=== PATIENT | female | born 1960 ===

== ENCOUNTER → 2016-05-31 | Day surgery (SDC) | payer MEDICAID ==
--- NOTE | 2016-05-28 19:08 | Pre-op HX & Phy Repo 2 SIG ---
DATE OF ADMISSION: 05/31/2016 DATE OF SURGERY: 05/31/2016 PREOPERATIVE DIAGNOSIS: Vitreous hemorrhage retraction, left eye. BRIEF NOTE: This is the first [place] admission for the patient, who is a very nice 55-year-old lady with a severe proliferative retinopathy and extensive hemorrhaging in the left eye. Her past ocular history is remarkable for previous laser treatment to retinal tears in both eyes. She has had diabetes for some time. Fluorescein angiography done in April 2016 showed very severe proliferative diabetic retinopathy in both eyes, worse on the left with widespread areas of preretinal fibrosis along the optic nerve and temporally as well as diffuse macular edema. She is admitted for vitrectomy with membrane peel on that side. PAST MEDICAL HISTORY: Again, is remarkable for diabetes, heart disease, and hypertension. MEDICATIONS: She is on atenolol and metformin. PHYSICAL EXAMINATION: Best vision at the time of the visit was 20/80 in the right eye and 20/60 in the left with pressures of 10. The anterior segment showed moderate cataracts on either side, presently nuclear sclerotic. Fundus examination of the right eye showed a 0.3 cup. There was optic disc neovascularization as well with widespread diabetic macular edema. Some degree of peripheral laser was seen. There was a [id number] vitreous hemorrhage. No significant posterior distortion of the macula was noted. On the left, there was widespread preretinal fibrosis with a vertical band going through the optic nerve and a curvilinear band extending outside of the macula exerting traction on the macula itself. Extensive old laser was seen as well as significant background diabetic retinopathy. ASSESSMENT: Severe proliferative diabetic retinopathy, both eyes with severe traction and vitreous hemorrhaging, left eye worse than right. PLAN: The plan is to perform a pars plana vitrectomy with membrane dissection, endolaser, and Avastin injection on the left eye. The risks and benefits of the surgery were gone over with the patient with the potential for infection, cataract worsening, retinal detachment, recurrent hemorrhage, and remote possibility of loss of the eye. The risk of anesthesia was discussed. The patient understands and consents to the surgery, which will be performed on Tuesday. Manuel Daugherty M.D. DR: BJ JOB#: [id number] CC:
[2016-05-31] VITALS (8 sets, daily range): BP systolic 119–148; BP diastolic 70–78
[~2016-05-31] VITALS: Ht 147.3 cm; Wt 66.7 kg
[~2016-05-31] MED LIST: ACTOS30 MG ORAL; ASPIRIN81 MG ORAL; ATORVASTATIN CA40 MG ORAL; Avastin 10mg Inj IVITRE ONE; BSS 15ml BTL ONE; BSS 500ml btl ONE; Bupivacaine 0.75% 30ml vial INJ ONE; Cyclopentolate 1% Opth Sol ONE; Dexamethasone 4mg/ml vial ONE; EPINEPHrine 1mg/1ml Amp ONE; Flurbiprofen 0.03% Opth Sol 2.5ml ONE; GABAPENTIN300 MG ORAL; GLIPIZIDE XL10 MG ORAL; Gatifloxacin Opth Solution 0.5% ONE; Kenalog-10 5ml Inj ONE; Kenalog-40 1ml Vial ONE; LANTUS SOL100 UNIT/1 SUBQ; LISINOPRIL10 MG ORAL; LR 1000ml 1,000 ML IV SCH; LR 1000ml 1,000 ML IVLG SCH; LR 1000ml ONE; Lidocaine 2% MPF 5ml Vial INJ ONE; METFORMIN HCL1000 M1 ORAL; Maxitrol Opth Oint 3.5gm ONE; Midazolam 2mg/2ml Inj ONE; NS Irrig 1000ml ONE; Phenylephrine 2.5% Op Soln ONE; Povidone-Iodine 5% opth solution ONE; Pred Forte 1% Opth Susp 1ml LEFT EYE ONE; Propofol 10mg/ml 20ml IV ONE; Sodium Hyaluronate 10 mg/ml 0.85ml ONE; Sterile Water Irrig 1000ml IRRIG ONE; Tetracaine 0.5% Opth Soln ONE; Triamcinolone 40mg/ml PF Vial ONE; [UNRECOGNIZED DRUG - REMARK]; fentaNYL 100 mcg/2 mL IV PRN
[2016-05-31] MEDS: Gatifloxacin Opth Solution 0.5% LEFT EYE SCH ×3 (05:37→06:11)
[2016-05-31] MEDS: Phenylephrine 2.5% Op Soln LEFT EYE SCH ×3 (05:37→06:11)
[2016-05-31] MEDS: Cyclopentolate 1% Opth Sol LEFT EYE SCH ×3 (05:37→06:11)
[2016-05-31] MEDS: Flurbiprofen 0.03% Opth Sol 2.5ml LEFT EYE SCH ×3 (05:37→06:11)
--- NOTE | 2016-05-31 06:01 | Pre-Procedure Note/Attestation ---
Pre-Procedure Note/Attestation Complete Prior to Procedure Planned Procedure: left Procedure Narrative: PPV, membrane peel, endolaser, Kenalog injection, Avastin injection L eye Indications for Procedure Pre-Operative Diagnosis: Vitreous hemorrhage with traction L eye Attestation I attest that I discussed the nature of the procedure; its benefits; risks and complications; and alternatives (and the risks and benefits of such alternatives ), prior to the procedure, with the patient (or the patient's legal industrial sales representative). I attest that, if there was a reasonable possibility of needing a blood transfusion, the patient (or the patient's legal industrial sales representative) was given the [facility] standardized written summary, pursuant to the Antonio Terri Blood Safety Act ([place] Health and Safety Code # 1645, as amended). I attest that I re-evaluated the patient just prior to the surgery and that there has been no change in the patient's H&P, except as documented below: ROLLY WITT May 31, 2016 06:01
--- NOTE | 2016-05-31 07:35 | Anethesia Preoperative Eval ---
Anesthesia Pre-op PMH/ROS General Date of Evaluation: May 31, 2016 Time of Evaluation: 06:55 Anesthesiologist: Mary ASA Score: ASA 3 Mallampati Score Class I : Soft palate, uvula, fauces, pillars visible Class II: Soft palate, uvula, fauces visible Class III: Soft palate, base of uvula visible Class IV: Only hard plate visible Mallampati Classification: Class II Surgeon: Dat Diagnosis: Vitreous hemorrhage left eye Surgical Procedure: Vitrectomy, membrane peeling Family History: no anesthesia problems Allergies: Coded Allergies: No Known Allergies (Unverified , 05/14/16) Medications: see eMAR Past Medical History Cardiovascular: Reports: CAD, HTN Pulmonary: Denies: COPD, ELSA, asthma, other Gastrointestinal/Genitourinary: Denies: CRI, ESRD, GERD, other Neurologic/Psychiatric: Denies: CVA, TIA, dementia, depression/anxiety, other Endocrine: Reports: DM HEENT: Denies: [place] (L), [place] (R), cataract (L), cataract (R), glaucoma, other Hematology/Immune: Denies: DVT, anemia, bleeding disorder, other Musculoskeletal/Integumentary: Denies: DDD, DJD, OA, RA, edema, other PMH Narrative: CAD (s/p PTCA), HTN, DM, hypercholesterolemia PSxH Narrative: PTCA, C/S Anesthesia Pre-op Phys. Exam Physician Exam Last Vital Signs Date Time Temp Pulse Resp B/P Pulse Ox O2 Delivery O2 Flow Rate FiO2 05/31/16 05:45 97.2 80 18 145/77 100 Room Air Constitutional: NAD Neurologic: CN 2-12 intact Cardiovascular: RRR, no M/R/G Respiratory: CTA Gastrointestinal: S/NT/ND Airway Exam Mallampati Score: Class II MO: full ROM: full Teeth: missing Anesthesia Pre-op A/P Labs WNL Studies Pre-op Studies: EKG - SR, possible septal infarct with possible lateral ischemia Risk Assessment & Plan Assessment: Vitreous hemorrhage Plan: MAC Status Change Before Surgery: No Pre-Antibiotics Drug: None RASHEL CASTELLANO M.D. May 31, 2016 07:35
--- NOTE | 2016-05-31 07:35 | Immediate Post-Op Evaluation ---
Immediate Post-Op Evalulation Immediate Post-Op Evalulation Procedure: Vitrectomy, membrane peeling left eye Date of Evaluation: May 31, 2016 Time of Evaluation: 08:20 IV Fluids: 250 Blood Pressure Systolic: 135 Blood Pressure Diastolic: 73 Pulse Rate: 80 Respiratory Rate: 20 O2 Sat by Pulse Oximetry: 100 Temperature (Fahrenheit): 97.0 Pain Score (1-10): 0 Nausea: No Vomiting: No Complications No complication Patient Status: awake, patent, none Hydration Status: adequate Drug: None RASHEL CASTELLANO M.D. May 31, 2016 07:35
--- NOTE | 2016-05-31 08:15 | 48 Hour Post Anesthesia Eval ---
Post Anesthesia Evaluation Procedure: Vitrectomy, membrane peeling left eye Date of Evaluation: May 31, 2016 Time of Evaluation: 09:50 Blood Pressure Systolic: 133 0: 75 Pulse Rate: 79 Respiratory Rate: 18 O2 Sat by Pulse Oximetry: 98 Nausea: No Vomiting: No Pain Intensity: 0 Hydration Status: adequate Cardiopulmonary Status: Stable Mental Status/LOC: patient returned to baseline Follow-up Care/Observations: As per surgery Post-Anesthesia Complications: No anesthetic complication Follow-up care needed: N/A RASHEL CASTELLANO M.D. May 31, 2016 08:15
--- NOTE | 2016-05-31 08:16 | Brief Operative Note ---
Immediate Post Operative Note Operative Note Chief Complaint: Dark clouds in vision L eye Pre-op Diagnosis: Vitreous hemorrhage with traction L eye Procedure: PPV, membrane peel, endolaser 829 spots, Kenalog injection, Avastin injection 1.25mg, Air-Fluid exchange L eye Post-op Diagnosis: same as pre-op Surgeon: ami Anesthesiologist: Mary Anesthesia: MAC Specimen: none Complications: none Condition: stable Estimated Blood Loss: none Drains: none Implant(s) used?: No ROLLY WITT May 31, 2016 08:16
--- NOTE | 2016-06-01 19:29 | Operative Note - Dictated ---
DATE OF OPERATION: 05/31/2016 PREOPERATIVE DIAGNOSIS: Vitreous hemorrhage with posterior diabetic traction of left eye. POSTOPERATIVE DIAGNOSIS: Vitreous hemorrhage with posterior diabetic traction of left eye. PROCEDURES: 1. Pars plana vitrectomy. 2. Extensive membrane peel. 3. Endolaser. 4. Kenalog injection. 5. Avastin injection. 6. Air-fluid exchange, left eye. SURGEON: Manuel Daugherty M.D. ROLLING ATTENDANT: None. ANESTHESIA: Local sedation. ANESTHESIOLOGIST: Dr. Hernandez. JUSTIFICATION FOR SURGERY: This 55-year-old lady with a long history of diabetes, developed recurrent hemorrhages and posterior distortion. BRIEF NOTE: The patient was brought to the operative room, placed on operating room table in supine position. After a time-out was performed and agreed upon by the staff and initial monitoring secured by Dr. Hernandez, a retrobulbar and van Lint blocks were given in the standard way. When the blocks taken effect, she was prepped and draped in normal manner. A lid speculum was inserted into the left eye. Using a 23-gauge trocar system cannulas were then placed in all except infranasal quadrant. Infusion secured inferotemporally. Vitrectomy was begun posterior to the lens taking care to avoid contact. A central core vitrectomy was performed. Kenalog was used to aid in visualization of vitreous membranes. Peripheral vitrectomy was continued leaving a small vitreous skirt. Several bands of traction were noted with the principal ones on the optic nerve along the inferotemporal arcade and along both superior arcades. These were sectioned with the vitreous cutter leaving small islands of traction. A posterior viewing lens was then inserted and using the membrane pick to identify the tissues spaces, the vitrector was used to gently dissect and cut away the preretinal fibrosis flush with the retina. Minimal if any bleeding was encountered and no retinal breaks were made. With the retina now free of traction, the Endolaser was brought to the eye and a power of 0.3 arenas duration of 0.2 seconds a total of 829 lesions were applied. The far periphery where the retina was lightly treated and also surrounding areas of traction. Scleral depression was done and no peripheral pathology of significance was noted. An air-fluid exchange was then performed through roughly a 90% fill followed by injection of Avastin 1.25 mg. All cannulas were removed and the wounds noted to be self-sealing. Subconjunctival Decadron and gentamicin were then injected inferiorly and Maxitrol and atropine ointments were instilled. The eye was patched and shielded and the patient was taken to recovery in excellent condition. There were no complications. Manuel Daugherty M.D. DR: BRYAN JOB#: [id number] CC: Manuel Daugherty M.D. [facility] CHILDREN'S HOSPITALMoises
== END | disposition home or self-care (01) ==
LOC: SUR 05:08
DX: H43.12 Vitreous hemorrhage, left eye (principal); H43.822 Vitreomacular adhesion, left eye; E11.3512 Type 2 diabetes mellitus with proliferative diabetic retinopathy with macular edema, left eye; Z79.84 Long term (current) use of oral hypoglycemic drugs; E11.42 Type 2 diabetes mellitus with diabetic polyneuropathy; E78.5 Hyperlipidemia, unspecified; I10 Essential (primary) hypertension; I25.10 Atherosclerotic heart disease of native coronary artery without angina pectoris; Z86.73 Personal history of transient ischemic attack (TIA), and cerebral infarction without residual deficits; Z79.82 Long term (current) use of aspirin; Z79.899 Other long term (current) drug therapy
CPT/HCPCS: 67042; 82962; J0171; J1100; J2250; J2704; J3301; J3470; J3490; J7120; J9035; Z7512; 94003; 94150; J3300

== ENCOUNTER 2016-08-30 05:54 | Day surgery (SDC) | payer MEDICAID ==
--- NOTE | 2016-08-27 17:00 | Pre-op HX & Phy Repo 2 SIG ---
DATE OF ADMISSION: 08/30/2016 DATE OF SURGERY: 08/30/2016. PREOPERATIVE DIAGNOSIS: Vitreous hemorrhage, recurrent, left eye. BRIEF NOTE: This is the second [place] admission for this patient who is very nice 55-year-old lady with a long history of proliferative diabetic retinopathy. She underwent surgery in May 2016 for a vitreous hemorrhage with traction. She did well, but developed postoperative oozing, which has failed to clear. She is admitted for a vitrectomy and washout with additional endolaser and Avastin on that side. PAST MEDICAL HISTORY: Remarkable for diabetes, heart disease, and hypertension. She has been diabetic for at least 20 years. MEDICATIONS: Her current medications include topical prednisolone acetate as well as atenolol and metformin orally. ALLERGIES: She has no known allergies. SOCIAL HISTORY: She is an everyday smoker, but does not drink. PHYSICAL EXAMINATION: HEENT: Best vision time of the visit was 20/60 in the right eye and counting fingers in the left with pressures of 14 and 12. The anterior segments were reasonably quiet. There were cortical cataracts in either eye, slightly worse on the left. Fundus exam of the right eye showed active neovascularization of the disc, which appeared to show some aggression. There was moderate peripheral laser. The left fundus was seen on due to the dense vitreous hemorrhage. The ultrasound that had been done previously showed the retina to be all attached. General physical examination was done by the patient's primary physician. ASSESSMENT: Dense vitreous hemorrhage, left eye. PLAN: The plan is to perform a pars plana vitrectomy with washout, additional endolaser and Avastin injection on the left. The risks and benefits of surgery gone over with the patient with potential for infection, hemorrhage, glaucoma, and remote possibility of loss of the eye. The risk of cataract progression was also discussed. The patient understands consents to surgery, to be performed on Tuesday morning. Manuel Daugherty M.D. DR: BRYAN JOB#: [id number] CC:
[~2016-08-30] VITALS: Ht 147.3 cm; Wt 68.0 kg
[2016-08-30] VITALS (8 sets, daily range): BP systolic 140–167; BP diastolic 73–85
[~2016-08-30 05:54] MED LIST changes: -Avastin 10mg Inj IVITRE ONE; -BSS 15ml BTL ONE; -BSS 500ml btl ONE; -Bupivacaine 0.75% 30ml vial INJ ONE; -Cyclopentolate 1% Opth Sol ONE; -Dexamethasone 4mg/ml vial ONE; -EPINEPHrine 1mg/1ml Amp ONE; -Flurbiprofen 0.03% Opth Sol 2.5ml ONE; -Gatifloxacin Opth Solution 0.5% ONE; -Kenalog-10 5ml Inj ONE; -Kenalog-40 1ml Vial ONE; -LR 1000ml 1,000 ML IV SCH; -LR 1000ml 1,000 ML IVLG SCH; -LR 1000ml ONE; -Lidocaine 2% MPF 5ml Vial INJ ONE; -Maxitrol Opth Oint 3.5gm ONE; -Midazolam 2mg/2ml Inj ONE; -NS Irrig 1000ml ONE; -Phenylephrine 2.5% Op Soln ONE; -Povidone-Iodine 5% opth solution ONE; -Pred Forte 1% Opth Susp 1ml LEFT EYE ONE; -Propofol 10mg/ml 20ml IV ONE; -Sodium Hyaluronate 10 mg/ml 0.85ml ONE; -Sterile Water Irrig 1000ml IRRIG ONE; -Tetracaine 0.5% Opth Soln ONE; -Triamcinolone 40mg/ml PF Vial ONE; -fentaNYL 100 mcg/2 mL IV PRN
[2016-08-30] MEDS ORDERED: Phenylephrine 2.5% Op Soln ONE (05:58)
[2016-08-30] MEDS ORDERED: Cyclopentolate 1% Opth Sol ONE (05:58)
[2016-08-30] MEDS ORDERED: Flurbiprofen 0.03% Opth Sol 2.5ml ONE (05:58)
[2016-08-30] MEDS ORDERED: Gatifloxacin Opth Solution 0.5% ONE (05:58)
[2016-08-30] MEDS ORDERED: Avastin 10mg Inj IVITRE ONE (06:00)
[2016-08-30] MEDS: Flurbiprofen 0.03% Opth Sol 2.5ml LEFT EYE SCH ×3 (06:27→06:47)
[2016-08-30] MEDS: Cyclopentolate 1% Opth Sol LEFT EYE SCH ×3 (06:27→06:47)
[2016-08-30] MEDS: Phenylephrine 2.5% Op Soln LEFT EYE SCH ×3 (06:27→06:47)
[2016-08-30] MEDS: Gatifloxacin Opth Solution 0.5% LEFT EYE SCH ×3 (06:28→06:48)
[2016-08-30] MEDS ORDERED: LR 1000ml 1,000 ML IV SCH (06:55)
[2016-08-30] MEDS ORDERED: Pred Forte 1% Opth Susp 1ml LEFT EYE ONE (07:30)
--- NOTE | 2016-08-30 07:34 | Pre-Procedure Note/Attestation ---
Pre-Procedure Note/Attestation Complete Prior to Procedure Planned Procedure: left Procedure Narrative: PPV, Endolaser, Avastin injection L eye Indications for Procedure Pre-Operative Diagnosis: Recurrent vitreous hemorrhage L eye Attestation I attest that I discussed the nature of the procedure; its benefits; risks and complications; and alternatives (and the risks and benefits of such alternatives ), prior to the procedure, with the patient (or the patient's legal public service representative). I attest that, if there was a reasonable possibility of needing a blood transfusion, the patient (or the patient's legal public service representative) was given the [facility] standardized written summary, pursuant to the Antonio Terri Blood Safety Act ([place] Health and Safety Code # 1645, as amended). I attest that I re-evaluated the patient just prior to the surgery and that there has been no change in the patient's H&P, except as documented below: ROLLY WITT Aug 30, 2016 07:34
[2016-08-30] MEDS ORDERED: Norco 5mg/325mg tab ORAL PRN ×2 (07:45→09:15)
--- NOTE | 2016-08-30 09:04 | Anethesia Preoperative Eval ---
Anesthesia Pre-op PMH/ROS General Date of Evaluation: Aug 30, 2016 Time of Evaluation: 08:59 Anesthesiologist: Igor ASA Score: ASA 3 Mallampati Score Class I : Soft palate, uvula, fauces, pillars visible Class II: Soft palate, uvula, fauces visible Class III: Soft palate, base of uvula visible Class IV: Only hard plate visible Mallampati Classification: Class II Surgeon: Dat Diagnosis: Vitreous Hemorrhage OS Surgical Procedure: Vitrectomy OS Anesthesia History: none Family History: no anesthesia problems Allergies: Coded Allergies: No Known Allergies (Unverified , 05/14/16) Medications: see eMAR Past Medical History Cardiovascular: Reports: CAD, HTN Neurologic/Psychiatric: Reports: CVA Endocrine: Reports: DM - FBS 196 PSxH Narrative: C/S Anesthesia Pre-op Phys. Exam Physician Exam Last Vital Signs Date Time Temp Pulse Resp B/P Pulse Ox O2 Delivery O2 Flow Rate FiO2 08/30/16 06:35 98.2 82 20 145/84 99 Room Air Constitutional: NAD Neurologic: CN 2-12 intact Cardiovascular: RRR Respiratory: CTA Gastrointestinal: S/NT/ND Airway Exam Mallampati Score: Class II MO: full ROM: limited Teeth: missing Anesthesia Pre-op A/P Risk Assessment & Plan Assessment: ASA 3 Plan: GA Status Change Before Surgery: Allan Diop MD Aug 30, 2016 09:04
[2016-08-30] MEDS ORDERED: LR 1000ml 1,000 ML IVLG SCH (09:07)
--- NOTE | 2016-08-30 09:10 | 48 Hour Post Anesthesia Eval ---
Post Anesthesia Evaluation Procedure: Vitrectomy OS Date of Evaluation: Aug 30, 2016 Time of Evaluation: 12:11 Blood Pressure Systolic: 161 0: 84 Pulse Rate: 83 Respiratory Rate: 18 Temperature (Fahrenheit): 97.4 O2 Sat by Pulse Oximetry: 100 Airway: patent Nausea: No Vomiting: No Pain Intensity: 1 Hydration Status: adequate Cardiopulmonary Status: Stable Mental Status/LOC: patient returned to baseline Follow-up Care/Observations: 0 Post-Anesthesia Complications: 0 Follow-up care needed: ready to discharge Allan Costa MD Aug 30, 2016 09:10
--- NOTE | 2016-08-30 09:10 | Immediate Post-Op Evaluation ---
Immediate Post-Op Evalulation Immediate Post-Op Evalulation Procedure: Vitrectomy OS Date of Evaluation: Aug 30, 2016 Time of Evaluation: 12:11 IV Fluids: 500 LR Blood Products: 0 Estimated Blood Loss: 1 Urinary Output: 0 Blood Pressure Systolic: 158 Blood Pressure Diastolic: 82 Pulse Rate: 82 Respiratory Rate: 16 O2 Sat by Pulse Oximetry: 100 Temperature (Fahrenheit): 97 Pain Score (1-10): 1 Nausea: No Vomiting: No Complications 0 Patient Status: awake, reacts, patent, none Hydration Status: adequate Allan Costa MD Aug 30, 2016 09:10
[2016-08-30] MEDS ORDERED: Ketorolac 60mg Inj IV PRN (09:15)
[2016-08-30] MEDS ORDERED: Hydromorphone 0.5mg/0.5ml inj IVP PRN (09:15)
[2016-08-30] MEDS ORDERED: Metoclopramide 10mg/2ml Inj IVP PRN (09:15)
[2016-08-30] MEDS ORDERED: Ketorolac 30mg Inj IV PRN (09:15)
[2016-08-30] MEDS ORDERED: Meperidine 25mg/0.5ml Inj IV PRN (09:15)
[2016-08-30] MEDS ORDERED: fentaNYL 100 mcg/2 mL IV PRN (09:15)
[2016-08-30] MEDS ORDERED: LORazepam Inj 2mg/ml 1ml IV PRN (09:15)
[2016-08-30] MEDS ORDERED: Oxycodone/Acetaminophen 5-325 ORAL PRN (09:15)
[2016-08-30] MEDS ORDERED: DiphenhydrAMINE 50mg/ml Inj IVP PRN (09:15)
[2016-08-30] MEDS ORDERED: Atropine Inj 1mg/10ml Syr IV PRN (09:15)
[2016-08-30] MEDS ORDERED: Midazolam 2mg/2ml Inj IVP PRN (09:15)
[2016-08-30] MEDS ORDERED: Norco 7.5mg/325mg tab ORAL PRN (09:15)
--- NOTE | 2016-08-30 10:04 | Brief Operative Note ---
Immediate Post Operative Note Operative Note Chief Complaint: Clouds in vision L eye Pre-op Diagnosis: Recurrent vitreous hemorrhage L eye Procedure: PPV, endocautery. endolaser 845 spots, Kenalog 1 mg, Avastin 1.25 mg L eye Post-op Diagnosis: same as pre-op Surgeon: ami Anesthesiologist: Elio Anesthesia: MAC Specimen: none Complications: none Condition: stable Estimated Blood Loss: none Drains: none Implant(s) used?: No ROLLY WITT Aug 30, 2016 10:04
[2016-08-30] MEDS ORDERED: BSS 500ml btl ONE (10:11)
[2016-08-30] MEDS ORDERED: Kenalog-40 1ml Vial ONE (10:11)
[2016-08-30] MEDS ORDERED: Tetracaine 0.5% Opth Soln ONE (10:11)
[2016-08-30] MEDS ORDERED: Dexamethasone 4mg/ml vial ONE (10:11)
[2016-08-30] MEDS ORDERED: Maxitrol Opth Oint 3.5gm ONE (10:11)
[2016-08-30] MEDS ORDERED: Kenalog-10 5ml Inj ONE (10:11)
[2016-08-30] MEDS ORDERED: BSS 15ml BTL ONE (10:12)
[2016-08-30] MEDS ORDERED: Bupivacaine 0.75% 30ml vial INJ ONE (10:12)
[2016-08-30] MEDS ORDERED: Povidone-Iodine 5% opth solution ONE (10:12)
[2016-08-30] MEDS ORDERED: Lidocaine 2% MPF 5ml Vial INJ ONE (10:12)
[2016-08-30] MEDS ORDERED: EPINEPHrine 1mg/1ml Amp ONE (10:12)
--- NOTE | 2016-08-30 13:30 | Operative Note - Dictated ---
DATE OF OPERATION: 08/30/2016 PREOPERATIVE DIAGNOSIS: Vitreous hemorrhage, recurrent left eye. PREOPERATIVE DIAGNOSIS: Vitreous hemorrhage, recurrent left eye. PROCEDURES: 1. Pars plana vitrectomy. 2. Endo cautery. 3. Endolaser. 4. Kenalog injection. 5. Avastin injection, left eye. SURGEON: Manuel Daugherty M.D. ADJUNCT MATHEMATICS INSTRUCTOR: None. ANESTHESIA: Local sedation. ANESTHESIOLOGIST: Allan Costa M.D. JUSTIFICATION FOR SURGERY: This 55-year-old lady with a long history of diabetes, underwent a vitrectomy several months ago for a dense vitreous hemorrhage. Surgery went well, but she noted bleeding postoperatively, which has failed to clear at over two months period. She is admitted for washout and exploration. BRIEF NOTE: The patient was brought to the operative room, placed on operating room table in supine position. After a time-out was performed and agreed upon by the staff and initial monitoring secured by Dr. Costa, she was prepped and draped in normal manner. A lid speculum was inserted into the left eye. Using a 23-gauge trocar system, cannulas were placed in all except infranasal quadrant. Infusion secured inferotemporally. Vitrectomy was begun posterior to the lens. Small amounts of peripheral vitreous were removed leaving a small vitreous skirt. A dense pool of blood was noted on the posterior surface of the retina. This was gently evacuated. Small source of bleeding appeared to be an area previously dissected traction along the supratemporal arcade with the septal area inferotemporally. The Endo cautery was brought to the eye and these areas were cauterized. No additional oozing was noted. The endolaser was then brought to the eye and a power of 0.3 arenas, duration 0.2 seconds, a total of 845 lesions were applied surrounding the areas that had been cauterized and in the periphery. No problems were encountered. Scleral depression showed no peripheral breaks, tears, or detachments. Kenalog 1 mg was injected followed by Avastin 1.25 mg. The cannulas were removed and all wounds were secured with a single suture of 8-0 Vicryl. Subconjunctival Decadron and gentamicin were injected inferiorly and prednisolone drops, gatifloxacin drops, and Maxitrol ointment were instilled. The eye was patched and shielded and the patient was taken to recovery in excellent condition. There were no complications. Manuel Daugherty M.D. DR: GRACIELA JOB#: [id number] CC: Manuel Daugherty M.D.; Fax#: [phone] [facility]
== END 2016-08-30 11:10 | disposition home or self-care (01) ==
LOC: SUR 05:54
DX: H43.12 Vitreous hemorrhage, left eye (principal); E11.3512 Type 2 diabetes mellitus with proliferative diabetic retinopathy with macular edema, left eye; Z79.84 Long term (current) use of oral hypoglycemic drugs; E11.40 Type 2 diabetes mellitus with diabetic neuropathy, unspecified; I25.10 Atherosclerotic heart disease of native coronary artery without angina pectoris; I10 Essential (primary) hypertension; E78.5 Hyperlipidemia, unspecified; E66.9 Obesity, unspecified; Z68.30 Body mass index [BMI] 30.0-30.9, adult; F17.200 Nicotine dependence, unspecified, uncomplicated; I69.951 Hemiplegia and hemiparesis following unspecified cerebrovascular disease affecting right dominant side; Z79.82 Long term (current) use of aspirin
CPT/HCPCS: 67039; 82962; J0171; J1100; J3301; J3470; J3490; J9035; Z7512; 94003; 94150